=== PATIENT | male | born 1995 | race Caucasian/White ===

== ENCOUNTER 2020-10-01 15:02 | Outpatient (REF) | payer OTHER, SELFPAY ==
--- NOTE | 2020-10-01 | MR_ITS ---
EXAMINATION: MR BRAIN WITHOUT CONTRAST CLINICAL INFORMATION: Spastic paraparesis. COMPARISON: None. TECHNIQUE: Multiplanar, multisequence imaging of the brain was performed without contrast. FINDINGS: No diffusion abnormalities are identified to suggest an acute or subacute infarct. The ventricles are normal in size. No mass effect or midline shift is seen. No brain parenchymal signal abnormality is noted. No extra-axial fluid collections are seen. The brainstem and cerebellum are normal. The gradient refocused acquisition demonstrates no pathologic magnetic susceptibility artifact to indicate underlying acute or chronic blood products. The craniovertebral junction, marrow signal, and midline structures are normal. The major intracranial flow voids at the level of the [place] are preserved. The dural venous sinus flow voids are maintained. The mastoid air cells and paranasal sinuses are well aerated. MR/MR head/brain wo con IMPRESSION: Normal MRI of the brain. No acute process.
== END 2020-10-01 15:03 | disposition home or self-care (01) ==
LOC: HO.MRI 15:02
PROVIDERS: PCP Pediatrics; Visit Provider Psychiatry & Neurology Neurology
DX: G83.89 Other specified paralytic syndromes (principal)
CPT/HCPCS: 70551

== ENCOUNTER 2020-10-08 08:56 | Outpatient (REF) | payer OTHER, SELFPAY ==
[2020-10-08 10:47] LABS: Folate 15.3 ng/mL (> or = 4.0); Vitamin B12 327 pg/mL (200-900)
[2020-10-09 09:12] LABS: Lyme Abs Screen <0.90 index
[2020-10-14 16:48] LABS: Alpha-Tocopherol 7.9 mg/L (5.7-19.9); Beta-Gamma Tocopherol <1.0 mg/L (<=4.3)
== END 2020-10-08 08:57 | disposition home or self-care (01) ==
LOC: HO.LAB 08:56
PROVIDERS: PCP Pediatrics; Visit Provider Psychiatry & Neurology Neurology
DX: G83.89 Other specified paralytic syndromes (principal)
CPT/HCPCS: 82607; 82746; 84446; 86618